=== PATIENT | female | born 1945 | race American Indian/Alaskan Native ===

== ENCOUNTER 2017-03-20 08:13 | Emergency (ER) | payer BC, OTHER ==
[2017-03-20 08:53] VITALS: BP 194/87
[2017-03-20 09:07] LABS: CHLORIDE,CL 103 mmol/L (101-111); SODIUM,NA 133 mmol/L (135-145)
--- NOTE | 2017-03-20 09:18 | EDM.PDOC ---
ED HPI GENERAL MEDICAL PROBLEM - General Chief Complaint: Chest Pain Stated Complaint: NOT FEELING GOOD Time Seen by Provider: 03/20/17 09:05 Source of Information: Reports: Patient History Limitations: Reports: No Limitations - History of Present Illness INITIAL COMMENTS - FREE TEXT/NARRATIVE: This 71 yo female patient reports to the ED with a 4 day history of intermittent left sided rib pain. The patient reports she was bending over an arm of a chair last (03/16/17) and has been feeling increased pain in her left ribs with movement since that time. The patient reports she did take 1 ibuprofen (200 mg), but had no symptom relief. The patient has a history of a heart murmur, but is not on any medications at this time. 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 [No Known Home Meds] 03/20/17 [History] Past Medical History HEENT History: Reports: Hard of Hearing, Impaired Vision, Other (See Below) Other HEENT History: has hearing aides that she has to wear. Cardiovascular History: Reports: Hypertension Respiratory History: Reports: None Genitourinary History: Reports: None FAMILY LIFE EDUCATOR History: Reports: None Musculoskeletal History: Reports: Osteoarthritis Neurological History: Reports: None Psychiatric History: Reports: Anxiety Endocrine/Metabolic History: Reports: None Hematologic History: Reports: None Immunologic History: Reports: None Oncologic (Cancer) History: Reports: None Dermatologic History: Reports: None - Infectious Disease History Infectious Disease History: Reports: Chicken Pox, Measles, Mumps - Past Surgical History Head Surgeries/Procedures: Reports: None GI Surgical History: Reports: Cholecystectomy Social & Family History - Family History Cardiac: Reports: CAD, Hypertension GI: Reports: Cholelithiasis - Tobacco Use Smoking Status *Q: Current Some Day Smoker Years of Tobacco use: 10 Packs/Tins Daily: 0.5 Second Hand Smoke Exposure: Yes - Caffeine Use Caffeine Use: Reports: Coffee, Soda - Recreational Drug Use Recreational Drug Use: No - Living Situation & Occupation Living situation: Reports: with Family Occupation: Retired ED ROS GENERAL - Review of Systems Review Of Systems: ROS reveals no pertinent complaints other than HPI. ED EXAM, GENERAL - Physical Exam Exam: See Below Exam Limited By: No Limitations General Appearance: Alert, WD/WN, Mild Distress, Thin Eye Exam: Bilateral Eye: EOMI, Normal Inspection, PERRL Ears: Normal External Exam, Normal Canal, Hearing Grossly Normal, Normal TMs Nose: Normal Inspection, Normal Mucosa, No Blood Throat/Mouth: Normal Inspection, Normal Lips, Normal Teeth, Normal Gums, Normal Oropharynx, Normal Voice, No Airway Compromise Head: Atraumatic, Normocephalic Neck: Normal Inspection, Supple, Non-Tender, Full Range of Motion Respiratory/Chest: No Respiratory Distress, Lungs Clear, Normal Breath Sounds, No Accessory Muscle Use, Other (left lateral rib pain ) Cardiovascular: Normal Peripheral Pulses, Regular Rate, Rhythm, No Edema, No Gallop, No JVD, No Murmur, No Rub GI/Abdominal: Normal Bowel Sounds, Soft, Non-Tender, No Organomegaly, No Distention, No Abnormal Bruit, No Mass (Female) Exam: Deferred Rectal (Female) Exam: Deferred Back Exam: Normal Inspection, Full Range of Motion, NT Extremities: Normal Inspection, Normal Range of Motion, Non-Tender, Normal Capillary Refill, No Pedal Edema Neurological: Alert, Oriented, CN II-XII Intact, Normal Cognition, Normal Gait, Normal Reflexes, No Motor/Sensory Deficits Psychiatric: Normal Affect Skin Exam: Warm, Dry, Intact, Normal Color, No Rash Lymphatic: No Adenopathy Course - Vital Signs Last Recorded V/S: Last Vital Signs Temp 37.3 C 03/20/17 08:22 Pulse 102 H 03/20/17 08:22 Resp 18 03/20/17 08:22 BP 194/87 H 03/20/17 08:22 Pulse Ox 100 03/20/17 08:22 - Orders/Labs/Meds Orders: Active Orders 24 hr Category Date Time Status EKG Documentation Completion [RC] URGENT Care 03/20/17 08:35 Ordered Chest 2V [CR] Urgent Exams 03/20/17 08:35 Ordered Labs: Laboratory Tests 03/20/17 03/20/17 03/20/17 Range/Units 08:40 08:40 08:40 WBC 5.3 (5.0-10.0) 10^3/uL RBC 3.66 L (4.2-5.4) 10^6/uL Hgb 11.8 L (12.0-16.0) g/dL Hct 34.8 L (37.0-47.0) % MCV 95.1 (80-100) fL MCH 32.2 (27.0-34.0) pg MCHC 33.9 (33.0-35.0) g/dL Plt Count 223 (150-450) 10^3/uL Neut % (Auto) 59.4 (42.2-75.2) % Lymph % (Auto) 28.8 (20.5-50.1) % [place] % (Auto) 7.4 (2-8) % Eos % (Auto) 3.6 H (1.0-3.0) % Baso % (Auto) 0.8 (0.0-1.0) % D-Dimer, Quantitative 427 H (0-400) ng/mL Sodium 133 L (135-145) mmol/L Potassium 3.4 L (3.6-5.0) mmol/L Chloride 103 (101-111) mmol/L Carbon Dioxide 20.0 L (21.0-31.0) mmol/L Anion Gap 13.4 BUN 10 (7-18) mg/dL Creatinine 0.7 (0.6-1.3) mg/dL Est Cr Clr Drug Dosing 60.09 mL/min Estimated GFR (MDRD) > 60 BUN/Creatinine Ratio 14.28 Glucose 124 H (74-105) mg/dL Calcium 9.3 (8.4-10.2) mg/dl Total Bilirubin 0.6 (0.2-1.0) mg/dL AST 51 H (10-42) IU/L ALT 36 (10-60) IU/L Alkaline Phosphatase 99 (42-121) IU/L Troponin I 0.02 (0.00-0.02) ng/ml Total Protein 8.9 H (6.7-8.2) g/dl Albumin 4.3 (3.2-5.5) g/dl Globulin 4.6 Albumin/Globulin Ratio 0.93 Departure - Departure Time of Disposition: 09:39 Disposition: Home, Self-Care 01 Condition: Fair Clinical Impression: Chest wall muscle strain Qualifiers: Encounter type: initial encounter Qualified Code(s): S29.011A - Strain of muscle and tendon of front wall of thorax, initial encounter - Discharge Information Instructions: Muscle Strain, [id number] Care Plan Goals: The patient was advised of the examination, lab, EKG and x-ray results during the visit. The patient was given an oral dose of Aleve (Naproxen) while in the ED. The patient was encouraged to take Naproxen (Aleve) 2 times per day for temporary symptom relief. If the patient has any additional symptoms or concerns , the patient should follow-up with her primary care facility or return to the emergency department. - My Orders Last 24 Hours: My Active Orders 03/20/17 08:35 EKG Documentation Completion [RC] URGENT Chest 2V [CR] Urgent - Assessment/Plan Last 24 Hours: My Active Orders 03/20/17 08:35 EKG Documentation Completion [RC] URGENT Chest 2V [CR] Urgent
--- NOTE | 2017-03-20 09:24 | CR ---
Clinical history: 71-year-old female with left-sided chest wall pain Interpretation: Bilateral apical pleural scarring, coarse accentuation of bronchovascular markings centrally and gene ralized mild air trapping. Mild kyphosis and arthritic changes osteopenic dorsal spine. No obvious rib fracture, underlying lung contusion, atelectasis, pleural effusion or signs of pneumothorax (numerous surgical katja in the upper abdomen, right of midline). Dense calcifications arch of the aorta. Normal cardiac silhouette without alveolar edema or dependent pleural effusion. No lung mass, hilar lymphadenopathy or focal lobar pneumonia. CONCLUSION: No acute cardiopulmonary abnormality.
[2017-03-20] MEDS ORDERED: Naproxen 500 MG Tab PO ONE (09:36)
--- NOTE | 2017-03-22 10:15 | EKG ---
03/20/2017- BELEN SAHA - EKG per my reading shows sinus rhythm at a rate of [address] changes[address] [facility] /[id number]
== END 2017-03-20 10:28 | disposition home or self-care (01) ==
LOC: DL.ED 08:13
DX: S29.011A Strain of muscle and tendon of front wall of thorax, initial encounter (principal); I10 Essential (primary) hypertension; F17.210 Nicotine dependence, cigarettes, uncomplicated; Z91.040 Latex allergy status; X50.1XXA Overexertion from prolonged static or awkward postures, initial encounter
CPT/HCPCS: 36415; 71020; 80053; 84484; 85025; 85379; 93005; 99284; A9270

== ENCOUNTER 2017-08-21 18:31 | Emergency (ER) | payer OTHER ==
[2017-08-21] MEDS ORDERED: Sodium Chloride 0.9% 1,000 ML IV ONE (22:45)
[2017-08-21] MEDS ORDERED: Acetaminophen 325 MG Tab PO ONE (22:45)
[2017-08-21 23:31] LABS: CHLORIDE,CL 98 mmol/L (101-111); SODIUM,NA 127 mmol/L (135-145)
[2017-08-21] MEDS ORDERED: Potassium Chloride 10 MEQ in Premix Bag 1 BAG IV ONE (23:44)
[2017-08-21] MEDS ORDERED: Potassium Chloride 10 MEQ Tab.ER PO ONE (23:44)
[2017-08-21] MEDS ORDERED: Potassium Chloride 100 ML ONE (23:48)
--- NOTE | 2017-08-22 01:46 | EDM.PDOC ---
ED HPI GENERAL MEDICAL PROBLEM - General Chief Complaint: General Stated Complaint: [id number] SICK FLU? Time Seen by Provider: 08/21/17 22:00 Source of Information: Reports: Patient History Limitations: Reports: No Limitations - History of Present Illness INITIAL COMMENTS - FREE TEXT/NARRATIVE: ED with complaint of not feeling well and bones aches, feels like the flu. Appetite some decrease no nausea or vomiting. 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 [No Known Home Meds] 03/20/17 [History] Past Medical History HEENT History: Reports: Hard of Hearing, Impaired Vision, Other (See Below) Other HEENT History: has hearing aides that she has to wear. 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 Musculoskeletal History: Reports: Osteoarthritis Neurological History: Reports: None Psychiatric History: Reports: Anxiety Endocrine/Metabolic History: Reports: None Hematologic History: Reports: None Immunologic History: Reports: None Oncologic (Cancer) History: Reports: None Dermatologic History: Reports: None - Infectious Disease History Infectious Disease History: Reports: Chicken Pox, Measles, Mumps - Past Surgical History Head Surgeries/Procedures: Reports: None GI Surgical History: Reports: Cholecystectomy Social & Family History - Family History Cardiac: Reports: CAD, Hypertension GI: Reports: Cholelithiasis - Tobacco Use Smoking Status *Q: Current Every Day Smoker Years of Tobacco use: 33 Packs/Tins Daily: 0.5 Second Hand Smoke Exposure: Yes - Caffeine Use Caffeine Use: Reports: Coffee - Recreational Drug Use Recreational Drug Use: No - Living Situation & Occupation Living situation: Reports: with Family Occupation: Retired ED ROS GENERAL - Review of Systems Review Of Systems: See Below Constitutional: Reports: Chills, Malaise HEENT: Reports: No Symptoms, Ear Pain (feel full) Respiratory: Reports: No Symptoms Cardiovascular: Reports: No Symptoms GI/Abdominal: Reports: No Symptoms Musculoskeletal: Reports: Other (generalized body aches) Skin: Reports: No Symptoms Neurological: Reports: No Symptoms Psychiatric: Reports: Anxiety ED EXAM, GENERAL - Physical Exam Exam: See Below Exam Limited By: No Limitations General Appearance: Alert, No Apparent Distress, Anxious, Thin Eye Exam: Bilateral Eye: Normal Fundi, PERRL Ears: Normal External Exam, Other (TM's dull, small amount cerumen) Nose: Normal Inspection. No: Nasal Drainage Throat/Mouth: Normal Inspection Head: Normocephalic Neck: Normal Inspection, Full Range of Motion Respiratory/Chest: No Respiratory Distress, Lungs Clear, Normal Breath Sounds Cardiovascular: Normal Peripheral Pulses, Regular Rate, Rhythm GI/Abdominal: Normal Bowel Sounds, Soft Back Exam: Normal Inspection, Full Range of Motion Extremities: Normal Inspection, Normal Range of Motion Psychiatric: Normal Affect Skin Exam: Warm, Dry, Intact, Normal Color, No Rash Course - Vital Signs Last Recorded V/S: Last Vital Signs Temp 100.5 F 08/22/17 01:54 Pulse 88 08/22/17 01:54 Resp 19 08/22/17 01:54 BP 135/53 L 08/22/17 01:54 Pulse Ox 99 08/22/17 01:54 - Orders/Labs/Meds Orders: Active Orders 24 hr Category Date Time Status EKG 12 Lead [EKG Documentation Completion] [RC] URGENT Care 08/21/17 23:45 Active CULTURE BLOOD [BC] Stat Lab 08/21/17 22:56 Received CULTURE BLOOD [BC] Stat Lab 08/21/17 23:00 Received UA W/MICROSCOPIC [URIN] Stat Lab 08/21/17 23:33 Ordered Blood Culture x2 Reflex Set [OM.PC] Stat Oth 08/21/17 22:46 Ordered Labs: Laboratory Tests 08/21/17 08/21/17 08/21/17 Range/Units 22:56 22:56 22:56 WBC 14.8 H (5.0-10.0) 10^3/uL RBC 3.71 L (4.2-5.4) 10^6/uL Hgb 11.7 L (12.0-16.0) g/dL Hct 34.2 L (37.0-47.0) % MCV 92.2 (80-100) fL MCH 31.5 (27.0-34.0) pg MCHC 34.2 (33.0-35.0) g/dL Plt Count 241 (150-450) 10^3/uL Neut % (Auto) 80.8 H (42.2-75.2) % Lymph % (Auto) 7.6 L (20.5-50.1) % [place] % (Auto) 11.4 H (2-8) % Eos % (Auto) 0.1 L (1.0-3.0) % Baso % (Auto) 0.1 (0.0-1.0) % Sodium 127 L (135-145) mmol/L Potassium 2.8 L (3.6-5.0) mmol/L Chloride 98 L (101-111) mmol/L Carbon Dioxide 19.0 L (21.0-31.0) mmol/L Anion Gap 12.8 BUN 14 (7-18) mg/dL Creatinine 0.8 (0.6-1.3) mg/dL Est Cr Clr Drug Dosing 51.57 mL/min Estimated GFR (MDRD) > 60 BUN/Creatinine Ratio 17.50 Glucose 142 H (74-105) mg/dL Lactic Acid 1.2 (0.5-2.2) mmol/L Calcium 8.9 (8.4-10.2) mg/dl Total Bilirubin 1.0 (0.2-1.0) mg/dL AST 77 H (10-42) IU/L ALT 52 (10-60) IU/L Alkaline Phosphatase 96 (42-121) IU/L Total Protein 9.1 H (6.7-8.2) g/dl Albumin 3.7 (3.2-5.5) g/dl Globulin 5.4 Albumin/Globulin Ratio 0.69 Urine Color (YELLOW) Urine Appearance (CLEAR) Urine pH (5.0-9.0) Ur Specific [place] (1.005-1.030) Urine Protein (NEGATIVE) Urine Glucose (UA) (NEGATIVE) Urine Ketones (NEGATIVE) Urine Occult Blood (NEGATIVE) Urine Nitrite (NEGATIVE) Urine Bilirubin (NEGATIVE) Urine Urobilinogen (0.2-1.0) mg/dL Ur Leukocyte Esterase (NEGATIVE) Urine RBC /HPF Urine WBC (0-5/HPF) /HPF Ur Epithelial Cells /HPF Urine Bacteria (0-FEW/HPF) /HPF Urine Mucus /LPF 08/21/17 Range/Units 23:33 WBC (5.0-10.0) 10^3/uL RBC (4.2-5.4) 10^6/uL Hgb (12.0-16.0) g/dL Hct (37.0-47.0) % MCV (80-100) fL MCH (27.0-34.0) pg MCHC (33.0-35.0) g/dL Plt Count (150-450) 10^3/uL Neut % (Auto) (42.2-75.2) % Lymph % (Auto) (20.5-50.1) % [place] % (Auto) (2-8) % Eos % (Auto) (1.0-3.0) % Baso % (Auto) (0.0-1.0) % Sodium (135-145) mmol/L Potassium (3.6-5.0) mmol/L Chloride (101-111) mmol/L Carbon Dioxide (21.0-31.0) mmol/L Anion Gap BUN (7-18) mg/dL Creatinine (0.6-1.3) mg/dL Est Cr Clr Drug Dosing mL/min Estimated GFR (MDRD) BUN/Creatinine Ratio Glucose (74-105) mg/dL Lactic Acid (0.5-2.2) mmol/L Calcium (8.4-10.2) mg/dl Total Bilirubin (0.2-1.0) mg/dL AST (10-42) IU/L ALT (10-60) IU/L Alkaline Phosphatase (42-121) IU/L Total Protein (6.7-8.2) g/dl Albumin (3.2-5.5) g/dl Globulin Albumin/Globulin Ratio Urine Color Yellow (YELLOW) Urine Appearance Slightly cloudy (CLEAR) Urine pH 6.5 (5.0-9.0) Ur Specific [place] 1.020 (1.005-1.030) Urine Protein 100 H (NEGATIVE) Urine Glucose (UA) Negative (NEGATIVE) Urine Ketones Negative (NEGATIVE) Urine Occult Blood Trace-intact H (NEGATIVE) Urine Nitrite Negative (NEGATIVE) Urine Bilirubin Small H (NEGATIVE) Urine Urobilinogen 4.0 H (0.2-1.0) mg/dL Ur Leukocyte Esterase Negative (NEGATIVE) Urine RBC 0-5 /HPF Urine WBC 0-5 (0-5/HPF) /HPF Ur Epithelial Cells Moderate H /HPF Urine Bacteria Few (0-FEW/HPF) /HPF Urine Mucus Moderate H /LPF Meds: Medications Discontinued Medications Generic Name Dose Route Start Last Admin Trade Name Freq PRN Reason Stop Dose Admin Acetaminophen 650 mg 08/21/17 22:45 08/21/17 23:03 Tylenol PO 08/21/17 22:46 650 mg NOW ONE Administration Sodium Chloride 1,000 mls @ 999 mls/hr 08/21/17 22:45 08/21/17 23:01 Normal Saline IV 08/21/17 23:45 999 mls/hr .BOLUS ONE Administration Potassium Chloride 10 meq/ 100 mls @ 100 mls/hr 08/21/17 23:44 08/22/17 00:03 Premix IV 08/22/17 00:43 100 mls/hr ONETIME ONE Administration Potassium Chloride Confirm 08/21/17 23:48 08/22/17 00:02 Kcl 10 Meq In Water 100 Ml Administered 08/21/17 23:49 Not Given Dose 100 mls @ as directed .ROUTE .STK-MED ONE Potassium Chloride 20 meq 08/21/17 23:44 08/21/17 23:48 Klor-Con 10 PO 08/21/17 23:45 20 meq ONETIME ONE Administration - Re-Assessments/Exams Free Text/Narrative Re-Assessment/Exam: 08/22/17 03:15 Notes general improvement following fluids and Potassium. Now reports hx of low potassium in past and tries to maintain potassium rich foods in diet plan. Fever controlled with tylenol Departure - Departure Time of Disposition: 01:45 Disposition: Home, Self-Care 01 Condition: Good Clinical Impression: Hyponatremia, Hypokalemia - Discharge Information Instructions: Hyponatremia, [id number], Hypokalemia Forms: ED Department Discharge Additional Instructions: light activity diet as tolerated, with potassium rich foods follow up in clinic on Monday to recheck potassium - My Orders Last 24 Hours: My Active Orders 08/21/17 22:46 Blood Culture x2 Reflex Set [OM.PC] Stat 08/21/17 22:56 CULTURE BLOOD [BC] Stat 08/21/17 23:00 CULTURE BLOOD [BC] Stat 08/21/17 23:33 UA W/MICROSCOPIC [URIN] Stat 08/21/17 23:45 EKG 12 Lead [EKG Documentation Completion] [RC] URGENT - Assessment/Plan Last 24 Hours: My Active Orders 08/21/17 22:46 Blood Culture x2 Reflex Set [OM.PC] Stat 08/21/17 22:56 CULTURE BLOOD [BC] Stat 08/21/17 23:00 CULTURE BLOOD [BC] Stat 08/21/17 23:33 UA W/MICROSCOPIC [URIN] Stat 08/21/17 23:45 EKG 12 Lead [EKG Documentation Completion] [RC] URGENT
[2017-08-22 01:54] VITALS: BP 135/53
--- NOTE | 2017-08-22 13:51 | EKG ---
08/21/2017- BELEN SAHA - FINDINGS: EKG, per my reading, shows sinus rhythm at the rate of 97. [facility] /[id number]
== END 2017-08-22 02:00 | disposition home or self-care (01) ==
LOC: DL.ED 18:31
DX: E87.1 Hypo-osmolality and hyponatremia (principal); E87.6 Hypokalemia; I10 Essential (primary) hypertension; F17.210 Nicotine dependence, cigarettes, uncomplicated; Z91.040 Latex allergy status
CPT/HCPCS: 36415; 80053; 81001; 83605; 85025; 87040; 87804; 93005; 96361; 96365; 99283; A9270; J3480; J7030; 87077; 87186

== ENCOUNTER 2017-12-25 01:40 | Emergency (ER) | payer MEDICARE, OTHER ==
[2017-12-25 01:51] VITALS: BP 196/91
--- NOTE | 2017-12-25 02:10 | EDM.PDOC ---
ED HPI GENERAL MEDICAL PROBLEM - General Chief Complaint: Abdominal Pain Stated Complaint: SIDE ACHE [id number] Time Seen by Provider: 12/25/17 02:05 Source of Information: Reports: Patient History Limitations: Reports: No Limitations - History of Present Illness INITIAL COMMENTS - FREE TEXT/NARRATIVE: onset right side pain about 3pm, on-off, denies prior h/o, had GB removed, no appetite but did eat a banana tonight and soup for lunch. denies N/V/D. Right Flank Pain Score (Numeric/FACES): 5 - Related Data Allergies Allergy/AdvReac Type Severity Reaction Status Date / Time latex Allergy Hives Verified 08/21/17 19:07 Home Meds: Home Meds . [No Known Home Meds] 03/20/17 [History] Past Medical History HEENT History: Reports: Hard of Hearing, Impaired Vision, Other (See Below) Other HEENT History: has hearing aides that she has to wear. 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 Musculoskeletal History: Reports: Osteoarthritis Neurological History: Reports: None Psychiatric History: Reports: Anxiety Endocrine/Metabolic History: Reports: None Hematologic History: Reports: None Immunologic History: Reports: None Oncologic (Cancer) History: Reports: None Dermatologic History: Reports: None - Infectious Disease History Infectious Disease History: Reports: Chicken Pox, Measles, Mumps - Past Surgical History Head Surgeries/Procedures: Reports: None GI Surgical History: Reports: Cholecystectomy Social & Family History - Family History Family Medical History: Noncontributory Cardiac: Reports: CAD, Hypertension GI: Reports: Cholelithiasis - Tobacco Use Smoking Status *Q: Unknown Ever Smoked - Caffeine Use Caffeine Use: Reports: Coffee - Recreational Drug Use Recreational Drug Use: No - Living Situation & Occupation Living situation: Reports: with Family Occupation: Retired ED ROS GENERAL - Review of Systems Review Of Systems: ROS reveals no pertinent complaints other than HPI. ED EXAM, GI/ABD - Physical Exam Exam: See Below Exam Limited By: No Limitations General Appearance: Alert, WD/WN, No Apparent Distress Ears: Hearing Grossly Normal Throat/Mouth: Normal Voice, No Airway Compromise Head: Atraumatic Neck: Non-Tender, Full Range of Motion Respiratory/Chest: No Respiratory Distress Cardiovascular: Regular Rate, Rhythm GI/Abdominal Exam: Soft, Tender, Abnormal Bowel Sounds, Other (BS hyper). No: Distended, Guarding, Rigid, Rebound Neurological: Alert, Oriented, Normal Cognition, Normal Gait, No Motor/Sensory Deficits Psychiatric: Normal Affect, Normal Mood Skin Exam: Warm, Dry, Normal Color Lymphatic: No Adenopathy Course - Vital Signs Last Recorded V/S: Last Vital Signs Temp 37.1 C 12/25/17 01:49 Pulse 105 H 12/25/17 01:49 Resp 18 12/25/17 01:49 BP 196/91 H 12/25/17 01:49 Pulse Ox 100 12/25/17 01:49 - Orders/Labs/Meds Orders: Active Orders 24 hr Category Date Time Status Abdomen 2V AP Flat Upright [CR] Urgent Exams 12/25/17 02:11 Taken Dicyclomine [Bentyl] Med 12/25/17 03:09 Once 20 mg IM ONETIME ONE Labs: Laboratory Tests 12/25/17 12/25/17 Range/Units 02:14 02:14 WBC 6.5 (5.0-10.0) 10^3/uL RBC 3.66 L (4.2-5.4) 10^6/uL Hgb 11.6 L (12.0-16.0) g/dL Hct 33.9 L (37.0-47.0) % MCV 92.6 (80-100) fL MCH 31.7 (27.0-34.0) pg MCHC 34.2 (33.0-35.0) g/dL Plt Count 202 (150-450) 10^3/uL Neut % (Auto) 61.6 (42.2-75.2) % Lymph % (Auto) 28.0 (20.5-50.1) % [place] % (Auto) 7.9 (2-8) % Eos % (Auto) 2.2 (1.0-3.0) % Baso % (Auto) 0.3 (0.0-1.0) % Sodium 133 L (135-145) mmol/L Potassium 3.5 L (3.6-5.0) mmol/L Chloride 102 (101-111) mmol/L Carbon Dioxide 23.0 (21.0-31.0) mmol/L Anion Gap 11.5 BUN 9 (7-18) mg/dL Creatinine 0.7 (0.6-1.3) mg/dL Est Cr Clr Drug Dosing 56.38 mL/min Estimated GFR (MDRD) > 60 BUN/Creatinine Ratio 12.85 Glucose 122 H (74-105) mg/dL Calcium 9.6 (8.4-10.2) mg/dl Total Bilirubin 0.7 (0.2-1.0) mg/dL AST 37 (10-42) IU/L ALT 21 (10-60) IU/L Alkaline Phosphatase 87 (42-121) IU/L Total Protein 8.6 H (6.7-8.2) g/dl Albumin 4.1 (3.2-5.5) g/dl Globulin 4.5 Albumin/Globulin Ratio 0.91 Amylase 84 (28-100) U/L Lipase 52 H (22-51) U/L Meds: Medications Discontinued Medications Generic Name Dose Route Start Last Admin Trade Name Freq PRN Reason Stop Dose Admin Dicyclomine HCl 20 mg 12/25/17 03:09 Bentyl IM 12/25/17 03:10 ONETIME ONE - Re-Assessments/Exams Free Text/Narrative Re-Assessment/Exam: 12/25/17 03:10 results discussed with pt Departure - Departure Time of Disposition: 03:10 Disposition: Home, Self-Care 01 Condition: Good Clinical Impression: Constipation by delayed colonic transit Abdominal pain Qualifiers: Abdominal location: epigastric Qualified Code(s): R10.13 - Epigastric pain - Discharge Information Instructions: Abdominal Pain, Adult, [id number] Forms: ED Department Discharge Additional Instructions: 1) try prune juice 2) try MIRALAX 3) follow up at clinic rx given; bentyl 10mg bid prn x 12 - My Orders Last 24 Hours: My Active Orders 12/25/17 02:11 Abdomen 2V AP Flat Upright [CR] Urgent 12/25/17 03:09 Dicyclomine [Bentyl] 20 mg IM ONETIME ONE - Assessment/Plan Last 24 Hours: My Active Orders 12/25/17 02:11 Abdomen 2V AP Flat Upright [CR] Urgent 12/25/17 03:09 Dicyclomine [Bentyl] 20 mg IM ONETIME ONE
[2017-12-25 02:40] LABS: ANION GAP 11.5; CHLORIDE,CL 102 mmol/L (101-111); SODIUM,NA 133 mmol/L (135-145)
[2017-12-25] MEDS ORDERED: Dicyclomine 20 MG/2 ML SDV IM ONE (03:09)
== END 2017-12-25 03:35 | disposition home or self-care (01) ==
LOC: DL.ED 01:40
DX: K59.01 Slow transit constipation (principal); R10.13 Epigastric pain; I10 Essential (primary) hypertension; Z91.040 Latex allergy status
CPT/HCPCS: 36415; 74019; 80053; 82150; 83690; 85025; 96374; 99284; J0500

== ENCOUNTER 2020-10-19 18:04 | Emergency (ER) | payer MEDICARE, OTHER ==
--- NOTE | 2020-10-19 18:20 | EDM.PDOC ---
"<Matt Jimenez - Last Filed: 10/19/20 21:35> ED HPI GENERAL MEDICAL PROBLEM - General Stated Complaint: STOMACH ACHE Time Seen by Provider: 10/19/20 18:20 - History of Present Illness INITIAL COMMENTS - FREE TEXT/NARRATIVE: This 75 yo female patient reports to the ED with diffuse abdominal pain. The patient reports her pain started this morning and has continued throughout the day. The patient reports she took Pepto, but her symptoms got worse after taking Pepto. The patient has a past surgical history of a cholecystectomy. The patient reports she has had nausea today, but no vomiting. The patient reports a medical history of a heart murmur and hypertension. 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 ED EXAM, GI/ABD - Physical Exam Exam: See Below Exam Limited By: No Limitations General Appearance: Alert, WD/WN, Moderate Distress Eyes: Bilateral: Normal Appearance, EOMI Ears: Normal External Exam, Normal Canal, Normal TMs, Hearing Loss (The patient reports she normally has hearing aids, but forgot them at home today.) Throat/Mouth: Normal Inspection, Normal Lips, Normal Teeth, Normal Gums, Normal Oropharynx, Normal Voice, No Airway Compromise Head: Atraumatic, Normocephalic Neck: Normal Inspection, Supple, Non-Tender, Full Range of Motion Respiratory/Chest: No Respiratory Distress, Lungs Clear, Normal Breath Sounds, No Accessory Muscle Use, Chest Non-Tender Cardiovascular: Normal Peripheral Pulses, Regular Rate, Rhythm, No Edema, No Gallop, No JVD, No Rub, Systolic Murmur GI/Abdominal Exam: Normal Bowel Sounds, No Organomegaly, No Distention, No Abnormal Bruit, No Mass, Pelvis Stable, Tender (mid lower abdomen) (Female) Exam: Deferred Rectal (Female) Exam: Deferred Back Exam: Normal Inspection, Full Range of Motion, NT Extremities: Normal Inspection, Normal Range of Motion, Non-Tender, Normal Capillary Refill, No Pedal Edema Neurological: Alert, Oriented, CN II-XII Intact, Normal Cognition, Normal Gait, Normal Reflexes, No Motor/Sensory Deficits Psychiatric: Normal Affect, Normal Mood Skin Exam: Warm, Dry, Intact, Normal Color, No Rash Lymphatic: No Adenopathy Course - Radiology Interpretation Free Text/Narrative:: [facility] [place] [facility] Final Radiology Report Call: [phone] assistance Online chat: [email or web address] Name: VERONICA SAHA Age: 75Years F Date: 10/19/2020 SSN: -- : [id number] Study: CT ABDOMEN PELVIS W CONT Requesting Physician: Matt Jimenez Images: [id number] Addl Studies: Provided Clinical History: lower abdominal pain Contrast: With Contrast Medium: Isovue 300 Contrast Amount: 75 mL Contrast Method: Intravenous (IV) Page 1 of 2 PROCEDURE INFORMATION: Exam: CT Abdomen And Pelvis With Contrast Exam date and time: 10/19/2020 8:10 PM Age: 75 years old Clinical indication: Abdominal pain; Localized; Lower; Prior surgery; Surgery date: 6+ months; Patient HX: Cholecystectomy; Additional info: Lower abdominal pain TECHNIQUE: Imaging protocol: Computed tomography of the abdomen and pelvis with contrast. Radiation optimization: All CT scans at this facility use at least one of these dose optimization techniques: automated exposure control; mA and/or kV adjustment per patient size (includes targeted exams where dose is matched to clinical indication); or iterative reconstruction. Contrast material: ISOVUE 300; Contrast volume: 75 ml; Contrast route: INTRAVENOUS (IV); COMPARISON: CR Abdomen 2V AP Flat Upright 12/25/2017 2:14 AM FINDINGS: Lungs: Bibasilar parenchymal scarring/atelectasis. Mediastinal space: A small hiatal hernia is present. Liver: Normal. No mass. Gallbladder and bile ducts: There has been a cholecystectomy. Pancreas: Normal. No ductal dilation. Spleen: Normal. No splenomegaly. Adrenal glands: Right adrenal calcification likely related to remote infection. Kidneys and ureters: Normal. No hydronephrosis. Stomach and bowel: Grossly dilated cecum and ascending colon with pericolonic inflammatory changes in the configuration suspect for possible cecal volvulus. Distal colon is collapsed. Appendix: No evidence of appendicitis. VERONICA SAHA | Final Radiology Report CONFIDENTIALITY STATEMENT This report is intended only for use by the referring physician, and only in accordance with law. If you received this in error, call [phone]. Page 2 of 2 Intraperitoneal space: Unremarkable. No free air. No significant fluid c ollection. Vasculature: The aortoiliac vessels demonstrate moderate atherosclerotic calcification. Lymph nodes: Unremarkable. No enlarged lymph nodes. Urinary bladder: Unremarkable as visualized. Reproductive: Unremarkable as visualized. Bones/joints: [id number] central spinal stenosis L4-L5. Soft tissues: Unremarkable. Other findings: Osteoporosis. IMPRESSION: 1. There has been a cholecystectomy. 2. A small hiatal hernia is present. 3. Right adrenal calcification likely related to remote infection. 4. Grossly dilated cecum and ascending colon with pericolonic inflammatory changes in the configuration suspect for possible cecal volvulus. Distal colon is collapsed. Thank you for allowing us to participate in the care of your patient. Dictated and Authenticated by: Phillip Leung MD 10/19/2020 9:19 PM Central Time ([place] & [place]) - Re-Assessments/Exams Free Text/Narrative Re-Assessment/Exam: 10/19/20 21:35 The patient was advised of the lab and CT results during the visit. The patient does not want to be admitted to the hospital for continued evaluation and fur ther care. Departure - Departure Time of Disposition: 21:35 Disposition: Home, Self-Care 01 Condition: Fair Clinical Impression: Volvulus of colon - Discharge Information *PRESCRIPTION DRUG MONITORING PROGRAM REVIEWED*: Not Applicable *COPY OF PRESCRIPTION DRUG MONITORING REPORT IN PATIENT JUSTO: Not Applicable Instructions: Volvulus Forms: ED Department Discharge Care Plan Goals: The patient was advised of the examination, lab and CT results during the visit. The patient was encouraged to allow us to admit her to the hospital for continued evaluation and care, but the patient would prefer to be released. The patient was advised not to eat any foods and only have small sips of fluid over the evening. The patient should have a follow-up with her primary care facility this week. If the patient has any additional symptoms or concerns, the patient should either return to the emergency department or visit her primary care facility. <Inocencia Méndez - Last Filed: 10/20/20 07:07> ED HPI GENERAL MEDICAL PROBLEM - General Source of Information: Reports: Patient, Family, RN, RN Notes Reviewed History Limitations: Reports: No Limitations - History of Present Illness INITIAL COMMENTS - FREE TEXT/NARRATIVE: Veronica is a 75 y/o female who presents to the ED via personal vehicle with for complaints of _. Past Medical History HEENT History: Reports: Hard of Hearing, Impaired Vision, Other (See Below) Other HEENT History: has hearing aides that she has to wear. Cardiovascular History: Reports: Hypertension Respiratory History: Reports: None Genitourinary History: Reports: None EXTERNAL AUDITOR History: Reports: None Musculoskeletal History: Reports: Osteoarthritis Neurological History: Reports: None Psychiatric History: Reports: Anxiety Endocrine/Metabolic History: Reports: None Hematologic History: Reports: None Immunologic History: Reports: None Oncologic (Cancer) History: Reports: None Dermatologic History: Reports: None - Infectious Disease History Infectious Disease History: Reports: Chicken Pox, Measles, Mumps - Past Surgical History Head Surgeries/Procedures: Reports: None GI Surgical History: Reports: Cholecystectomy Social & Family History - Family History Family Medical History: No Pertinent Family History Cardiac: Reports: CAD, Hypertension GI: Reports: Cholelithiasis - Caffeine Use Caffeine Use: Reports: Coffee - Living Situation & Occupation Living situation: Reports: with Family Occupation: Retired Course - Vital Signs Last Recorded V/S: Last Vital Signs Temp 98.3 F 10/19/20 18:22 Pulse 101 H 10/19/20 18:22 Resp 14 10/19/20 18:22 BP 157/63 H 10/19/20 18:22 Pulse Ox 100 10/19/20 18:22 - Orders/Labs/Meds Labs: Laboratory Tests 10/19/20 10/19/20 10/19/20 Range/Units 18:21 18:50 18:50 WBC 7.7 (5.0-10.0) 10^3/uL RBC 3.28 L (4.2-5.4) 10^6/uL Hgb 10.7 L (12.0-16.0) g/dL Hct 31.4 L (37.0-47.0) % MCV 95.7 D (80-100) fL MCH 32.6 (27.0-34.0) pg MCHC 34.1 (33.0-35.0) g/dL Plt Count 225 (150-450) 10^3/uL Neut % (Auto) 68.0 (42.2-75.2) % Lymph % (Auto) 22.8 (20.5-50.1) % Kimble % (Auto) 7.8 (2-8) % Eos % (Auto) 1.0 (1.0-3.0) % Baso % (Auto) 0.4 (0.0-1.0) % Sodium 138 (136-145) mmol/L Potassium 3.8 (3.5-5.1) mmol/L Chloride 104 (98-107) mmol/L Carbon Dioxide 20 L (21-32) mmol/L Anion Gap 17.8 H (7-13) mEq/L BUN 15 (7-18) mg/dL Creatinine 0.93 (0.55-1.02) mg/dL Est Cr Clr Drug Dosing 41.27 mL/min Estimated GFR (MDRD) 59 BUN/Creatinine Ratio 16.1 (No establ ref range) Glucose 115 H (70-99) mg/dL POC Glucose 112 H (70-99) mg/dL Lactic Acid (0.4-2.0) mmol/L Calcium 8.6 (8.5-10.1) mg/dL Magnesium 1.8 (1.8-2.4) mg/dL Total Bilirubin 0.5 (0.2-1.0) mg/dL AST 39 H (15-37) U/L ALT 23 (14-59) U/L Alkaline Phosphatase 95 (46-116) U/L Total Protein 7.7 (6.4-8.2) g/dL Albumin 3.0 L (3.4-5.0) g/dL Globulin 4.7 Albumin/Globulin Ratio 0.64 Amylase 68 (25-115) U/L Lipase 174 (73-393) U/L Urine Color (YELLOW) Urine Appearance (CLEAR) Urine pH (5.0-9.0) Ur Specific [place] (1.005-1.030) Urine Protein (NEGATIVE) Urine Glucose (UA) (NEGATIVE) Urine Ketones (NEGATIVE) Urine Occult Blood (NEGATIVE) Urine Nitrite (NEGATIVE) Urine Bilirubin (NEGATIVE) Urine Urobilinogen (0.2-1.0) mg/dL Ur Leukocyte Esterase (NEGATIVE) Urine Opiates Screen (NEGATIVE) Ur Oxycodone Screen (NEGATIVE) Urine Methadone Screen (NEGATIVE) Ur Barbiturates Screen (NEGATIVE) U Tricyclic Antidepress (NEGATIVE) Ur Phencyclidine Scrn (NEGATIVE) Ur Amphetamine Screen (NEGATIVE) U Methamphetamines Scrn (NEGATIVE) Urine MDMA Screen (NEGATIVE) U Benzodiazepines Scrn (NEGATIVE) Urine Cocaine Screen (NEGATIVE) U Marijuana (THC) Screen (NEGATIVE) Ethyl Alcohol < 3 (0) mg/dL 10/19/20 10/19/20 10/19/20 Range/Units 18:50 20:35 20:35 WBC (5.0-10.0) 10^3/uL RBC (4.2-5.4) 10^6/uL Hgb (12.0-16.0) g/dL Hct (37.0-47.0) % MCV (80-100) fL MCH (27.0-34.0) pg MCHC (33.0-35.0) g/dL Plt Count (150-450) 10^3/uL Neut % (Auto) (42.2-75.2) % Lymph % (Auto) (20.5-50.1) % Kimble % (Auto) (2-8) % Eos % (Auto) (1.0-3.0) % Baso % (Auto) (0.0-1.0) % Sodium (136-145) mmol/L Potassium (3.5-5.1) mmol/L Chloride (98-107) mmol/L Carbon Dioxide (21-32) mmol/L Anion Gap (7-13) mEq/L BUN (7-18) mg/dL Creatinine (0.55-1.02) mg/dL Est Cr Clr Drug Dosing mL/min Estimated GFR (MDRD) BUN/Creatinine Ratio (No establ ref range) Glucose (70-99) mg/dL POC Glucose (70-99) mg/dL Lactic Acid 1.2 (0.4-2.0) mmol/L Calcium (8.5-10.1) mg/dL Magnesium (1.8-2.4) mg/dL Total Bilirubin (0.2-1.0) mg/dL AST (15-37) U/L ALT (14-59) U/L Alkaline Phosphatase (46-116) U/L Total Protein (6.4-8.2) g/dL Albumin (3.4-5.0) g/dL Globulin Albumin/Globulin Ratio Amylase (25-115) U/L Lipase (73-393) U/L Urine Color Yellow (YELLOW) Urine Appearance Clear (CLEAR) Urine pH 6.5 (5.0-9.0) Ur Specific [place] 1.015 (1.005-1.030) Urine Protein Negative (NEGATIVE) Urine Glucose (UA) Negative (NEGATIVE) Urine Ketones Negative (NEGATIVE) Urine Occult Blood Negative (NEGATIVE) Urine Nitrite Negative (NEGATIVE) Urine Bilirubin Negative (NEGATIVE) Urine Urobilinogen 0.2 (0.2-1.0) mg/dL Ur Leukocyte Esterase Negative (NEGATIVE) Urine Opiates Screen Negative (NEGATIVE) Ur Oxycodone Screen Negative (NEGATIVE) Urine Methadone Screen Negative (NEGATIVE) Ur Barbiturates Screen Negative (NEGATIVE) U Tricyclic Antidepress Negative (NEGATIVE) Ur Phencyclidine Scrn Negative (NEGATIVE) Ur Amphetamine Screen Negative (NEGATIVE) U Methamphetamines Scrn Negative (NEGATIVE) Urine MDMA Screen Negative (NEGATIVE) U Benzodiazepines Scrn Negative (NEGATIVE) Urine Cocaine Screen Negative (NEGATIVE) U Marijuana (THC) Screen Negative (NEGATIVE) Ethyl Alcohol (0) mg/dL Meds: Medications Discontinued Medications Generic Name Dose Route Start Last Admin Trade Name Orquidea PRN Reason Stop Dose Admin Sodium Chloride 1,000 mls @ 999 mls/hr 10/19/20 18:40 10/19/20 18:56 Normal Saline IV 10/19/20 19:40 999 mls/hr .BOLUS ONE Administration Iopamidol 100 ml 10/19/20 19:57 10/19/20 20:36 Iopamidol 612 Mg/Ml 100 Ml Bottle IVPUSH 10/19/20 19:58 75 ml ONETIME ONE Administration Ondansetron HCl 4 mg 10/19/20 18:40 10/19/20 18:57 Ondansetron 4 Mg/2 Ml Sdv IVPUSH 10/19/20 18:41 4 mg ONETIME ONE Administration - Re-Assessments/Exams Free Text/Narrative Re-Assessment/Exam: 10/19/20 Care of patient transferred to Matt Jimenez PA-C at 1900; report given."
[2020-10-19 18:28] VITALS: BP 157/63; PULSE 101
[2020-10-19] MEDS ORDERED: Sodium Chloride 0.9% 1,000 ML IV ONE (18:40)
[2020-10-19] MEDS ORDERED: Ondansetron 4 MG/2 ML SDV IVPUSH ONE (18:40)
[2020-10-19 19:39] LABS: ANION GAP 17.8 mEq/L (7-13); CHLORIDE,CL 104 mmol/L (98-107); SODIUM,NA 138 mmol/L (136-145)
[2020-10-19] MEDS ORDERED: Iopamidol 612 MG/ML 100 ML Bottle IVPUSH ONE (19:57)
--- NOTE | 2020-10-19 21:19 | CT ---
PROCEDURE INFORMATION: Exam: CT Abdomen And Pelvis With Contrast Exam date and time: 10/19/2020 8:10 PM Age: 75 years old Clinical indication: Abdominal pain; Localized; Lower; Prior surgery; Surgery date: 6+ months; Patient HX: Cholecystectomy; Additional info: Lower abdominal pain TECHNIQUE: Imaging protocol: Computed tomography of the abdomen and pelvis with contrast. Radiation optimization: All CT scans at this facility use at least one of these dose optimization techniques: automated exposure control; mA and/or kV adjustment per patient size (includes targeted exams where dose is matched to clinical indication); or iterative reconstruction. Contrast material: ISOVUE 300; Contrast volume: 75 ml; Contrast route: INTRAVENOUS (IV); COMPARISON: CR Abdomen 2V AP Flat Upright 12/25/2017 2:14 AM FINDINGS: Lungs: Bibasilar parenchymal scarring/atelectasis. Mediastinal space: A small hiatal hernia is present. Liver: Normal. No mass. Gallbladder and bile ducts: There has been a cholecystectomy. Pancreas: Normal. No ductal dilation. Spleen: Normal. No splenomegaly. Adrenal glands: Right adrenal calcification likely related to remote infection. Kidneys and ureters: Normal. No hydronephrosis. Stomach and bowel: Grossly dilated cecum and ascending colon with pericolonic inflammatory changes in the configuration suspect for possible cecal volvulus. Distal colon is collapsed. Appendix: No evidence of appendicitis. Intraperitoneal space: Unremarkable. No free air. No significant fluid collection. Vasculature: The aortoiliac vessels demonstrate moderate atherosclerotic calcification. Lymph nodes: Unremarkable. No enlarged lymph nodes. Urinary bladder: Unremarkable as visualized. Reproductive: Unremarkable as visualized. Bones/joints: [id number] central spinal stenosis L4-L5. Soft tissues: Unremarkable. Other findings: Osteoporosis. IMPRESSION: 1. There has been a cholecystectomy. 2. A small hiatal hernia is present. 3. Right adrenal calcification likely related to remote infection. 4. Grossly dilated cecum and ascending colon with pericolonic inflammatory changes in the configuration suspect for possible cecal volvulus. Distal colon is collapsed.
== END 2020-10-19 21:48 | disposition home or self-care (01) ==
LOC: DL.ED 18:04
DX: K56.2 Volvulus (principal); I10 Essential (primary) hypertension; Z91.040 Latex allergy status
CPT/HCPCS: 36415; 74177; 80053; 80305; 80307; 81003; 82150; 82947; 83605; 83690; 83735; 85025; 96374; 99284; J2405; J7030; Q9967

== ENCOUNTER 2020-10-21 12:47 | Emergency (ER) | payer MEDICARE, OTHER ==
[2020-10-21 13:24] VITALS: BP 162/72; PULSE 97
[2020-10-21] MEDS ORDERED: Sodium Chloride 0.9% 10 ML Syringe FLUSH PRN (13:28)
[2020-10-21] MEDS ORDERED: Morphine 4 MG/ML Syringe IVPUSH ONE ×2 (13:29→16:10)
[2020-10-21] MEDS ORDERED: Ondansetron 4 MG/2 ML SDV IV ONE (13:29)
[2020-10-21 14:17] LABS: ANION GAP 17.7 mEq/L (7-13); CHLORIDE,CL 101 mmol/L (98-107); SODIUM,NA 135 mmol/L (136-145)
[2020-10-21] MEDS ORDERED: Iopamidol 612 MG/ML 100 ML Bottle IVPUSH ONE (14:37)
--- NOTE | 2020-10-21 14:51 | CT ---
EXAMINATION: Abdomen Pelvis w Cont SEX: Female AGE: 75 years CLINICAL HISTORY: 75-year-old hypertensive 112 pound female smoker with abdominal pain (note: Patient diagnosed 2 days ago with "small hiatus hernia; cholecystectomy; and possible cecal volvulus" who left AGAINST MEDICAL ADVICE). Reevaluate please. Scan technique: Line acquisition of data emergency CT scan of the abdomen and pelvis obtained during the intravenous administration 75 cc nonionic Isovue contrast at 3 cc/s via injector while patient was lying supine on the Siemens multi slice scanner [place], [place]. All data archived in the PACS system for storage, reformatting axial/sagittal/coronal planes and study. Interpretation: ABNORMAL. 1. *Distended fluid-filled right colon but normal caliber small intestine and distal colon again suggesting cecal volvulus with obstruction. Differential consideration includes adhesions to the RUQ associated with numerous surgical clips from cholecystectomy. No radiographic improvement since 19 October 2020 exam. No ventral wall hernias. 2. No abdominal or pelvic mass lesion. Normal midline uterus. No mesenteric or retroperitoneal lymphadenopathy. 3. Atheromatous calcifications normal caliber aorta iliac vessels. No aneurysm or dissection. Osteoporosis. 4. Liver, stomach, spleen, pancreas, adrenal glands and kidneys anatomically correct. 5. No ascites or free intraperitoneal air. Lung bases clear. No pericardial or pleural effusions.
[2020-10-21] MEDS ORDERED: Lactated Ringers 1,000 ML IV ONE (14:52)
--- NOTE | 2020-10-21 16:03 | CR ---
PROCEDURE INFORMATION: Exam: XR Chest Exam date and time: 10/21/2020 3:36 PM Age: 75 years old Clinical indication: Device placement; Ng tube; Additional info: Id if the tube is coiled TECHNIQUE: Imaging protocol: XR of the chest. Views: 1 view. COMPARISON: 1. CT Abdomen Pelvis w Cont 10/19/2020 8:10 PM 2. CR Abdomen 2V AP Flat Upright 12/25/2017 2:14 AM FINDINGS: Tubes, catheters and devices: A nasogastric/orogastric tube has been placed. The tip lies in the proximal stomach. There multiple surgical clips projecting over the upper abdomen. Lungs: The lungs are markedly hyperinflated. Pleural spaces: No dependent pleural effusion. Heart/Mediastinum: The heart is not enlarged. Bones/joints: No acute bony findings are identified. Gastrointestinal tract: Dilated colonic loops project over the mid abdomen, similar to what was seen on the recent CT study. IMPRESSION: A nasogastric/orogastric tube has been placed. The tip lies in the proximal stomach.
--- NOTE | 2020-10-22 13:47 | EDM.PDOC ---
ED HPI GENERAL MEDICAL PROBLEM - General Chief Complaint: Abdominal Pain Stated Complaint: STOMACH CRAMPS, NOT EATING OR DRINKING Time Seen by Provider: 10/21/20 13:10 Source of Information: Reports: Patient History Limitations: Reports: No Limitations - History of Present Illness INITIAL COMMENTS - FREE TEXT/NARRATIVE: Patient comes emergency department today from home with concerns of continued abdominal pain unable to eat nausea without vomiting. This patient was seen in the emergency department 2 days ago and was told that she possibly had a small bowel obstruction and chose not to be admitted and was discharged home. She continues to have the same abdominal pain that is getting worse. She has nauseated. She is unable to eat. She has had a couple very loose diarrheal stools but they are rather small. She denies any fever or chills. No chest pain or shortness of breath or difficulty breathing. No cough or congestion. No hematuria dysuria or urinary frequency. No flank pain. She has had surgery in her abdomen in the past for a gallbladder disease. Otherwise no other procedure to her abd. Abdominal Pain Score (Numeric/FACES): 8 - Related Data Allergies Allergy/AdvReac Type Severity Reaction Status Date / Time latex Allergy Hives Verified 10/19/20 18:28 Home Meds: Home Meds lisinopriL [Lisinopril] 10 mg PO ASDIRECTED 10/19/20 [History] Past Medical History HEENT History: Reports: Hard of Hearing, Impaired Vision, Other (See Below) Other HEENT History: has hearing aides that she has to wear. Cardiovascular History: Reports: Hypertension Respiratory History: Reports: None Genitourinary History: Reports: None EMT I/99 History: Reports: None Musculoskeletal History: Reports: Osteoarthritis Neurological History: Reports: None Psychiatric History: Reports: Anxiety Endocrine/Metabolic History: Reports: None Hematologic History: Reports: None Immunologic History: Reports: None Oncologic (Cancer) History: Reports: None Dermatologic History: Reports: None - Infectious Disease History Infectious Disease History: Reports: Chicken Pox, Measles, Mumps - Past Surgical History Head Surgeries/Procedures: Reports: None GI Surgical History: Reports: Cholecystectomy Social & Family History - Family History Family Medical History: No Pertinent Family History Cardiac: Reports: CAD, Hypertension GI: Reports: Cholelithiasis - Tobacco Use Tobacco Use Status *Q: Unknown Ever Used Tobacco - Caffeine Use Caffeine Use: Reports: Coffee - Recreational Drug Use Recreational Drug Use: No - Living Situation & Occupation Living situation: Reports: with Family Occupation: Retired ED ROS GENERAL - Review of Systems Review Of Systems: Comprehensive ROS is negative, except as noted in HPI. ED EXAM, GI/ABD - Physical Exam Exam: See Below Exam Limited By: No Limitations General Appearance: Alert, WD/WN, No Apparent Distress Eyes: Bilateral: Normal Appearance Respiratory/Chest: No Respiratory Distress, Lungs Clear, No Accessory Muscle Use Cardiovascular: Normal Peripheral Pulses, Regular Rate, Rhythm GI/Abdominal Exam: Normal Bowel Sounds, Soft, Distended, Guarding (mid abd), Tender (generalized ), Abnormal Bowel Sounds (quite decreased. ). No: Rigid, Rebound (Female) Exam: Deferred Rectal (Female) Exam: Deferred Back Exam: Normal Inspection, Full Range of Motion Extremities: Normal Inspection, Normal Range of Motion, No Pedal Edema, Normal Capillary Refill Neurological: Alert, Oriented, Normal Cognition, No Motor/Sensory Deficits Psychiatric: Normal Affect, Normal Mood Skin Exam: Warm, Dry, Intact, Normal Color, No Rash Course - Vital Signs Last Recorded V/S: Last Vital Signs Temp 99.1 F 10/21/20 13:20 Pulse 97 10/21/20 13:20 Resp 12 10/21/20 13:20 BP 162/72 H 10/21/20 13:20 Pulse Ox 98 10/21/20 13:20 - Orders/Labs/Meds Orders: Active Orders 24 hr Category Date Time Status Nasogastric Orogastric Tube Insertion [OM.PC] Routine Oth 10/21/20 14:53 Ordered Labs: Laboratory Tests 10/21/20 10/21/20 10/21/20 Range/Units 13:44 13:44 13:44 WBC 8.1 (5.0-10.0) 10^3/uL RBC 3.48 L (4.2-5.4) 10^6/uL Hgb 11.4 L (12.0-16.0) g/dL Hct 33.0 L (37.0-47.0) % MCV 94.8 (80-100) fL MCH 32.8 (27.0-34.0) pg MCHC 34.5 (33.0-35.0) g/dL Plt Count 274 (150-450) 10^3/uL Neut % (Auto) 89.2 H (42.2-75.2) % Lymph % (Auto) 7.6 L (20.5-50.1) % [place] % (Auto) 2.9 (2-8) % Eos % (Auto) 0.1 L (1.0-3.0) % Baso % (Auto) 0.2 (0.0-1.0) % Sodium 135 L (136-145) mmol/L Potassium 3.7 (3.5-5.1) mmol/L Chloride 101 (98-107) mmol/L Carbon Dioxide 20 L (21-32) mmol/L Anion Gap 17.7 H (7-13) mEq/L BUN 12 (7-18) mg/dL Creatinine 0.89 (0.55-1.02) mg/dL Est Cr Clr Drug Dosing 42.53 mL/min Estimated GFR (MDRD) > 60 BUN/Creatinine Ratio 13.5 (No establ ref range) Glucose 142 H (70-99) mg/dL Lactic Acid 0.9 (0.4-2.0) mmol/L Calcium 8.9 (8.5-10.1) mg/dL Total Bilirubin 0.7 (0.2-1.0) mg/dL AST 46 H (15-37) U/L ALT 24 (14-59) U/L Alkaline Phosphatase 91 (46-116) U/L Total Protein 8.1 (6.4-8.2) g/dL Albumin 3.1 L (3.4-5.0) g/dL Globulin 5.0 Albumin/Globulin Ratio 0.62 Lipase 149 (73-393) U/L Meds: Medications Discontinued Medications Generic Name Dose Route Start Last Admin Trade Name Freq PRN Reason Stop Dose Admin Lactated Ringer's 1,000 mls @ 1,000 mls/hr 10/21/20 14:52 10/21/20 15:20 Ringers, Lactated IV 10/21/20 15:51 1,000 mls/hr .BOLUS ONE Administration Iopamidol 100 ml 10/21/20 14:37 10/21/20 14:37 Iopamidol 612 Mg/Ml 100 Ml Bottle IVPUSH 10/21/20 14:38 75 ml ONETIME ONE Administration Morphine Sulfate 4 mg 10/21/20 13:29 10/21/20 13:54 Morphine 4 Mg/Ml Syringe IVPUSH 10/21/20 13:30 4 mg ONETIME ONE Administration Morphine Sulfate 4 mg 10/21/20 16:10 10/21/20 16:15 Morphine 4 Mg/Ml Syringe IVPUSH 10/21/20 16:11 4 mg ONETIME ONE Administration Ondansetron HCl 4 mg 10/21/20 13:29 10/21/20 13:52 Ondansetron 4 Mg/2 Ml Sdv IV 10/21/20 13:30 4 mg ONETIME ONE Administration Sodium Chloride 10 ml 10/21/20 13:28 10/21/20 13:54 Sodium Chloride 0.9% 10 Ml Syringe FLUSH 10 ml ASDIRECTED PRN Administration Keep Vein Open - Re-Assessments/Exams Free Text/Narrative Re-Assessment/Exam: IV established labs were drawn. She was given morphine for pain and zofran for nausea with much improvement. I did review the patient's CT exam of the abdomen pelvis on 09/2120 after her last ER visit there is a small hiatal hernia. Right adrenal calcification. Grossly dilated cecum and ascending colon with pericolonic inflammatory changes in the configuration suspect for possible cecal volvulus. Distal colon is collapsed. Due to the concerns of the previous CT scan of the cecal volvulus we will repeat her CT scan to make sure that she has not had any worsening of her symptomology from that time. Repeat CTs per radiology shows continued cecal volvulus. No mention of pneumatosis. With the concerns of a surgical emergency of a cecal volvulus I called and spoke with Dr. Patel at [facility] in [place]. HPI ER COURSE findings and surgical emergency concerns were relayed to her. No other orders and she will see the patient in the ED in [place] and most likely right to surgery. I discussed the findings of the continued cecal volvulus with the patient. She was given fluids for hydration. An NG tube was set to low continuous suction. Postplacement chest x-ray is appropriately placed NG tube past the diaphragm. She is understanding of the concerns of the surgical emergency for a cecal volvulus. Her questions were answered. Departure - Departure Time of Disposition: 16:00 Disposition: DC/Tfer to [facility] Clinical Impression: Cecal volvulus - Discharge Information Referrals: PCP,None [Primary Care Provider] - Forms: ED Department Discharge Sepsis Event Note (ED) - Evaluation Sepsis Screening Result: No Definite Risk - My Orders Last 24 Hours: My Active Orders 10/21/20 14:53 Nasogastric Orogastric Tube Insertion [OM.PC] Routine - Assessment/Plan Last 24 Hours: My Active Orders 10/21/20 14:53 Nasogastric Orogastric Tube Insertion [OM.PC] Routine
== END 2020-10-21 16:30 ==
LOC: DL.ED 12:47
DX: K56.2 Volvulus (principal); I10 Essential (primary) hypertension; Z91.040 Latex allergy status
CPT/HCPCS: 36415; 43752; 71045; 74177; 80053; 83605; 83690; 85025; 96374; 96375; 96376; 99284; 99285; J2270; J2405; J7120; Q9967

== ENCOUNTER 2020-10-30 04:35 | Emergency (ER) | payer MEDICARE, OTHER ==
[2020-10-30] MEDS ORDERED: Acetaminophen/oxyCODONE 325-5 MG Tab PO ONE (04:36)
[2020-10-30 05:00] VITALS: BP 98/58; PULSE 134
[2020-10-30] MEDS ORDERED: fentaNYL 100 MCG/2 ML SDV IVPUSH ONE ×2 (05:01→07:24)
[2020-10-30] MEDS ORDERED: Acetaminophen/oxyCODONE 325-5 MG Tab ONE (05:09)
[2020-10-30 05:44] LABS: ANION GAP 16.7 mEq/L (7-13)
--- NOTE | 2020-10-30 07:05 | EDM.PDOC ---
<Tad Diaz - Last Filed: 10/30/20 08:09> ED HPI GENERAL MEDICAL PROBLEM - General Chief Complaint: Gastrointestinal Problem Stated Complaint: AMBULANCE Time Seen by Provider: 10/30/20 04:55 - Related Data Allergies Allergy/AdvReac Type Severity Reaction Status Date / Time latex Allergy Hives Verified 10/19/20 18:28 Home Meds: Home Meds lisinopriL [Lisinopril] 10 mg PO ASDIRECTED 10/19/20 [History] ED ROS GENERAL - Review of Systems Review Of Systems: See Below Constitutional: Denies: Fever, Chills GI/Abdominal: Reports: Abdominal Pain. Denies: Hematemesis, Hematochezia, Melena, Nausea, Vomiting Course - Vital Signs Text/Narrative:: Patient assumed care at shift change, the patient continues to have pain to the entirety of her abdomen, the patient is status post colon resection and was seen here this morning for continued pain she was discharged from the hospital in [place] yesterday. Patient has a midline surgical incision which is closed with katja which is well approximated no erythema, no evidence of acute infectious process, the patient is has no fever and no signs of sepsis at this time however, the radiology report on the plain films" impression: #1 improved partial small bowel obstruction. #2 prior cholecystectomy.: Secondary to this we will perform a CT abdomen and pelvis CT showsIMPRESSION: 1. Anterior abdominal pneumoperitoneum. This is presumed postoperative given the history of recent surgery. Clinical correlation with the patient's specific symptomatology is recommended. 2. Right partial colectomy with ileo-transverse anastomosis. 3. Extensive small bowel dilatation with patent ileocolonic anastomosis, without specific evidence of mechanical obstruction. Consider functional partial obstruction versus ileus. Clinical correlation with the patient's specific symptomatology/physical examination is recommended. 4. Prior cholecystectomy. 5. Moderate abdominal and pelvic ascites. 6. Diverticulosis. 7. Small left pleural effusion, new. 8. Minimal right pleural effusion, new. 9. Small hiatal hernia. I suspect this is all postoperative changes however, then extensive discussion with the patient regarding return for any worsening condition Departure - Departure Time of Disposition: 08:07 Disposition: Home, Self-Care 01 Condition: Fair Clinical Impression: Post-operative pain - Discharge Information *PRESCRIPTION DRUG MONITORING PROGRAM REVIEWED*: Not Applicable *COPY OF PRESCRIPTION DRUG MONITORING REPORT IN PATIENT JUSTO: Not Applicable Instructions: Abdominal Pain, Adult, [id number] Forms: ED Department Discharge Additional Instructions: Home, rest, return as needed for any worsening condition, follow-up outpatient with your PCP next week, call your surgeon for follow-up appointment next week <Rupali Grimaldo - Last Filed: 11/05/20 04:16> ED HPI GENERAL MEDICAL PROBLEM - General Source of Information: Reports: Patient History Limitations: Reports: No Limitations - History of Present Illness INITIAL COMMENTS - FREE TEXT/NARRATIVE: ED via [facility] with c/o abdominal pain, Discharged from [facility] yesterday following colon resection for volvulus. Did not get in town until pharmacy closed. Pain, feels burpy. No vomiting or nausea No fever. No urinary sx. EMS gave Fentanyl 50 and zofran 4mg Pain improved 10 Abdomen Pain Score (Numeric/FACES): 8 Past Medical History HEENT History: Reports: Hard of Hearing, Impaired Vision, Other (See Below) Other HEENT History: has hearing aides that she has to wear. 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 Musculoskeletal History: Reports: Osteoarthritis Neurological History: Reports: None Psychiatric History: Reports: Anxiety Endocrine/Metabolic History: Reports: None Hematologic History: Reports: None Immunologic History: Reports: None Oncologic (Cancer) History: Reports: None Dermatologic History: Reports: None - Infectious Disease History Infectious Disease History: Reports: Chicken Pox, Measles, Mumps - Past Surgical History Head Surgeries/Procedures: Reports: None GI Surgical History: Reports: Cholecystectomy Social & Family History - Family History Family Medical History: No Pertinent Family History Cardiac: Reports: CAD, Hypertension GI: Reports: Cholelithiasis - Tobacco Use Tobacco Use Status *Q: Never Tobacco User - Caffeine Use Caffeine Use: Reports: Coffee - Living Situation & Occupation Living situation: Reports: with Family Occupation: Retired ED EXAM, GI/ABD - Physical Exam Exam: See Below Exam Limited By: No Limitations General Appearance: Alert, No Apparent Distress Eyes: Bilateral: EOMI Ears: Normal External Exam, Hearing Loss Nose: Normal Inspection Throat/Mouth: Normal Inspection, Normal Voice Head: Atraumatic, Normocephalic Neck: Normal Inspection, Full Range of Motion Respiratory/Chest: No Respiratory Distress, Lungs Clear Cardiovascular: Normal Peripheral Pulses, Regular Rate, Rhythm, Tachycardia, Other (bounding) GI/Abdominal Exam: Normal Bowel Sounds, Soft, Tender (lower incisional) Back Exam: Normal Inspection Extremities: Normal Inspection Neurological: Alert, Oriented, Normal Cognition Psychiatric: Normal Affect Skin Exam: Warm, Dry, Intact, Normal Color, No Rash, Wound/Incision (midline vertical lower abdominal incision, katja, intact no redness or drainage) Course - Vital Signs Last Recorded V/S: Last Vital Signs Temp 99.7 F 10/30/20 04:54 Pulse 134 H 10/30/20 04:54 Resp 16 10/30/20 04:54 BP 98/58 L 10/30/20 04:54 Pulse Ox 97 10/30/20 04:54 - Orders/Labs/Meds Labs: Laboratory Tests 10/30/20 10/30/20 Range/Units 05:19 05:19 WBC 12.7 H (5.0-10.0) 10^3/uL RBC 3.39 L (4.2-5.4) 10^6/uL Hgb 10.7 L (12.0-16.0) g/dL Hct 31.5 L (37.0-47.0) % MCV 92.9 (80-100) fL MCH 31.6 (27.0-34.0) pg MCHC 34.0 (33.0-35.0) g/dL Plt Count 345 (150-450) 10^3/uL Neut % (Auto) 91.4 H (42.2-75.2) % Lymph % (Auto) 4.6 L (20.5-50.1) % [place] % (Auto) 3.8 (2-8) % Eos % (Auto) 0.1 L (1.0-3.0) % Baso % (Auto) 0.1 (0.0-1.0) % Sodium 133 L (136-145) mmol/L Potassium 3.7 (3.5-5.1) mmol/L Chloride 99 (98-107) mmol/L Carbon Dioxide 21 (21-32) mmol/L Anion Gap 16.7 H (7-13) mEq/L BUN 11 (7-18) mg/dL Creatinine 1.15 H (0.55-1.02) mg/dL Est Cr Clr Drug Dosing 34.43 mL/min Estimated GFR (MDRD) 46 BUN/Creatinine Ratio 9.6 (No establ ref range) Glucose 114 H (70-99) mg/dL Calcium 8.6 (8.5-10.1) mg/dL Total Bilirubin 0.8 (0.2-1.0) mg/dL AST 38 H (15-37) U/L ALT 17 (14-59) U/L Alkaline Phosphatase 95 (46-116) U/L Total Protein 6.4 (6.4-8.2) g/dL Albumin 2.4 L (3.4-5.0) g/dL Globulin 4.0 Albumin/Globulin Ratio 0.60 Meds: Medications Discontinued Medications Generic Name Dose Route Start Last Admin Trade Name [place] PRN Reason Stop Dose Admin Fentanyl 25 mcg 10/30/20 05:01 10/30/20 05:16 Fentanyl 100 Mcg/2 Ml Sdv IVPUSH 10/30/20 05:02 Not Given ONETIME ONE Fentanyl 25 mcg 10/30/20 07:24 10/30/20 07:44 Fentanyl 100 Mcg/2 Ml Sdv IVPUSH 10/30/20 07:25 25 mcg ONETIME ONE Administration Iopamidol 100 ml 10/30/20 07:22 10/30/20 07:42 Iopamidol 612 Mg/Ml 100 Ml Bottle IVPUSH 10/30/20 07:23 75 ml ONETIME ONE Administration Oxycodone/Acetaminophen Confirm 10/30/20 05:09 10/30/20 05:17 Acetaminophen/Oxycodone 325-5 Mg Tab Administered 10/30/20 05:10 Not Given Dose 2 tab .ROUTE .STK-MED ONE Oxycodone/Acetaminophen 1 tab 10/30/20 04:36 Acetaminophen/Oxycodone 325-5 Mg Tab PO 10/30/20 04:37 .STK-MED ONE Sepsis Event Note (ED) - Evaluation Sepsis Screening Result: No Definite Risk
--- NOTE | 2020-10-30 07:11 | CR ---
PROCEDURE INFORMATION: Exam: XR Abdomen Exam date and time: 10/30/2020 5:31 AM Age: 75 years old Clinical indication: Abdominal pain; Prior surgery; Surgery date: Post-operative (0-2 days); Additional info: Pain, S/P abd surgery TECHNIQUE: Imaging protocol: XR of the abdomen. Views: Frontal supine view of the abdomen. 1 View. COMPARISON: CT Abdomen Pelvis w Cont 10/21/2020 2:32 PM FINDINGS: Tubes, catheters and devices: Midline surgical cutaneous clips. Gastrointestinal tract: Multiple dilated mid abdominal small bowel loops, maximal caliber significantly less than on the preceding study. Rectal gas is present. Intraperitoneal space: Surgical clip lateral left abdomen. Organs: The gallbladder is likely surgically absent, with metallic clips overlying the gallbladder fossa. Bones/joints: Bilateral lower lumbar facet primary osteoarthritis. IMPRESSION: 1. Improved partial small bowel obstruction. 2. Prior cholecystectomy.
[2020-10-30] MEDS ORDERED: Iopamidol 612 MG/ML 100 ML Bottle IVPUSH ONE (07:22)
--- NOTE | 2020-10-30 07:59 | CT ---
PROCEDURE INFORMATION: Exam: CT Abdomen And Pelvis With Contrast Exam date and time: 10/30/2020 7:34 AM Age: 75 years old Clinical indication: Abdominal pain; Generalized; Prior surgery; Surgery date: Post-operative (0-2 days); Additional info: Abd pain TECHNIQUE: Imaging protocol: Computed tomography of the abdomen and pelvis with contrast. Radiation optimization: All CT scans at this facility use at least one of these dose optimization techniques: automated exposure control; mA and/or kV adjustment per patient size (includes targeted exams where dose is matched to clinical indication); or iterative reconstruction. Contrast material: ISOVUE 300; Contrast volume: 75 ml; Contrast route: INTRAVENOUS (IV); COMPARISON: CT Abdomen Pelvis w Cont 10/21/2020 2:32 PM FINDINGS: Lungs: Left posterior pulmonary partial passive atelectasis. Pleural spaces: Small left pleural effusion. Minimal right pleural effusion. Heart: Dense mitral annular calcification is present. Mediastinal space: A small sliding hiatal hernia is present above the level of the diaphragm. Liver: Normal. No mass. Gallbladder and bile ducts: The gallbladder is surgically absent, with metallic clips in the gallbladder fossa. No biliary ductal dilatation or ductal calculus. Pancreas: Normal. No ductal dilation. Spleen: Small size but otherwise unremarkable. No splenomegaly. Adrenal glands: Normal. No mass. Kidneys and ureters: Normal. No hydronephrosis. Stomach and bowel: Right partial colectomy with ileo-transverse anastomosis. There is moderate caliber prominence of mid-distal small bowel loops with increased intraluminal fluid, without definite wall thickening. Distension extends to the ileo to colonic anastomosis, with a non-differential intraluminal air-fluid level communicating across the anastomosis. There is gaseous distension of the transverse colon, with transition at the splenic flexure, without evidence of mechanical obstruction at this site. Distal colonic contraction/decompression. Slightly differential and nondifferential air-fluid levels are present in the small bowel. Sigmoid colonic diverticula are present without evidence of diverticulitis. Appendix: Right partial colectomy with ileo-transverse anastomosis. Intraperitoneal space: Anterior abdominal pneumoperitoneum. Moderate abdominal and pelvic ascites. Previously described "Surgical clip lateral left abdomen" appears to be posterior external to the patient (series 2, image 36). Vasculature: Moderate aortic atherosclerotic calcification without aneurysm. The iliac arteries show moderate bilateral atherosclerotic calcifications without evidence of aneurysm. Lymph nodes: No enlarged lymph nodes. Urinary bladder: Unremarkable as visualized. Reproductive: Unremarkable as visualized. Bones/joints: Diffuse osteopenia. Soft tissues: Unremarkable. IMPRESSION: 1. Anterior abdominal pneumoperitoneum. This is presumed postoperative given the history of recent surgery. Clinical correlation with the patient's specific symptomatology is recommended. 2. Right partial colectomy with ileo-transverse anastomosis. 3. Extensive small bowel dilatation with patent ileocolonic anastomosis, without specific evidence of mechanical obstruction. Consider functional partial obstruction versus ileus. Clinical correlation with the patient's specific symptomatology/physical examination is recommended. 4. Prior cholecystectomy. 5. Moderate abdominal and pelvic ascites. 6. Diverticulosis. 7. Small left pleural effusion, new. 8. Minimal right pleural effusion, new. 9. Small hiatal hernia.
== END 2020-10-30 08:20 | disposition home or self-care (01) ==
LOC: DL.ED 04:35
DX: G89.18 Other acute postprocedural pain (principal); R10.30 Lower abdominal pain, unspecified; I10 Essential (primary) hypertension; Z90.49 Acquired absence of other specified parts of digestive tract; Z91.040 Latex allergy status
CPT/HCPCS: 36415; 74018; 74177; 80053; 85025; 96374; 99285; A9270; J3010; Q9967